=== PATIENT | male | born 1945 | race Caucasian/White ===

== ENCOUNTER 2021-12-17 16:50 | Emergency (ER) | payer OTHER, SELFPAY ==
[2021-12-17] VITALS (14 sets, daily range): BP systolic 145–197; BP diastolic 80–97; PULSE 64–76; RESP 7–26; TEMP 36; O2SAT 95–99
--- NOTE | 2021-12-17 16:45 | RT.EKG_ITS ---
APPROVED REPORT Exam: Resting ECG Reason for Exam: abd pain/chest pain Patient Location: E HR:65 bpm ECG Measurements Heart Rate 65 AXIS TN 209 P 152 QRSd 109 QRS -10 QT 391 T -7 QTc 408 Conclusion Sinus or ectopic atrial rhythm...P axis (-45,135) Low voltage, extremity leads...all extremity leads <0.5mV sinus rhythm, normal axis, non ischemic, poor lead placement II
--- NOTE | 2021-12-17 17:30 | DI.CT_ITS ---
Exam(s) CT ABDOMEN PELVIS WO EXAM: CT ABDOMEN PELVIS WO CLINICAL HISTORY: left lower abdominal pain, rad into groin. TECHNIQUE: Imaging Protocol: Axial computed tomography images with coronal and sagittal reformatted images were created and reviewed CONTRAST MATERIAL: Intravenous: none Oral: None COMPARISON: No exams were available for comparison FINDINGS: VISUALIZED LUNG BASES: No nodules nor pleural effusions evident. ABDOMEN: There is no ascites. LIVER: There is a 4 millimeter hypodensity in the right hepatic lobe which has benign appearance prob ably cyst or small hemangioma. GALLBLADDER/BILIARY: No obvious gallbladder pathology. CBD is not dilated. PANCREAS: No evidence of pancreatic mass nor dilatation of the pancreatic duct. SPLEEN: Spleen is not enlarged. No obvious intrasplenic lesions. ADRENALS: There are no significant adrenal masses. KIDNEYS:Horseshoe kidney. There is a 2.5 x 2.3 cm cyst in the posterior cortex of the right side of the horseshoe kidney. The right ureter appears unremarkable. There is some streaking around the lef t side of the horseshoe kidney and left ureter. There is a 3 millimeter calculus in the urinary blad brissa and I suspect this has recently passed down the left ureter. There are no remaining radiopaque c alculi in the or shoe kidney. No other significant focal findings in the bladder.. ABDOMINAL AORTA: Calcified and upper normal size. LYMPH NODES: There is no retroperitoneal nor paraaortic adenopathy. ABDOMINAL WALL: No significant anterior abdominal hernia although there is a fat containing left ingu inal hernia noted. GI: There is no evidence of bowel obstruction, free air, nor abscess. PELVIS: LYMPH NODES: There is no intrapelvic nor inguinal adenopathy. GI: No evidence of appendicitis.No evidence of sigmoid diverticulitis. URINARY BLADDER: 3 millimeter calculus dependent aspect bladder. REPRODUCTIVE: Prostate not enlarged. Seminal vesicles unremarkable OSSEOUS: No significant osseous lesions. No fractures. IMPRESSION: 1. 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 Also streaking around the left kidney aspect and left ureter. There is a 3 millimeter calculus in the ureter which I suspect has recently passed down the left side. Mild left retroperitoneal edema. 2. No remaining calculi in the horseshoe kidney. RADIATION DOSE DELIVERED: 696.31mGy.cm Total DLP DATA REPOSITORY: All CT scans at this facility are submitted to the National Radiology Data Registry (NRDR) Dose Index Registry (DIR) with the [employer] (ACR). RADIATION OPTIMIZATION: All CT scans at this facility use at least one of these dose optimization te chniques: automated exposure control; mA and/or kV adjustment per patient size (includes targeted exa ms where dose is matched to clinical indication); or iterative reconstruction.
[2021-12-17 18:00] LABS: Abs Immature Grans 0.01 10^3/uL (0.0-0.06); Absolute Basophil Count 0.04 10^3/uL (0.0-0.2); Absolute Eosinophil Count 0.01 10^3/uL (0.0-0.7); Absolute Lymphocyte Count 3.17 10^3/uL (1.2-3.4); Absolute Monocyte Count 0.16 10^3/uL (0.1-0.8); Basophils % 0.6; Eosinophils % 0.2; HCT 37.7 % (40.0-50.0); HGB 12.9 g/dL (13.5-17.5); Immature Grans % 0.2; Lymphocytes % 49.6; MCH 36.5 pg (27.0-33.0); MCHC 34.2 % (32.0-36.0); MCV 107 fL (80-95); MPV 9.5 fL (8.0-11.0); Monocytes % 2.5; Neutrophils % 46.9; Platelet Count 231 10^3/uL (130-400); RBC 3.53 10^6/uL (4.36-5.78); RDW 12.9 % (11.8-14.1); RDW-SD 50.9 fL; WBC 6.39 10^3/uL (4.4-10.8)
[2021-12-17] MEDS: Normal Saline 1,000 ML 1000 ML IV (18:05)
[2021-12-17] MEDS: HYDROmorphone 2 MG/ML VIAL 1 MG IVP (18:05)
[2021-12-17 18:17] LABS: ALT 28 U/L (16-63); AST 36 U/L (15-37); Alkaline Phosphatase 59 U/L (46-116); Anion Gap 10.4 mmol/L (3-11); BUN 23 mg/dL (7-18); Bilirubin, Total 0.5 mg/dL (0.2-1.0); CO2 25.6 mmol/L (21.0-32.0); CREATININE 1.3 mg/dL (0.70-1.30); Calcium 9.2 mg/dL (8.5-10.1); Chloride 102 mmol/L (98-107); Estimated GFR 53.82 (mL/min/1.73m2); Glucose 120 mg/dL (74-106); Lipase 87 U/L (73-393); Potassium 3.7 mmol/L (3.5-5.1); Sodium 138 mmol/L (136-145); Troponin I < 50 ng/L (<or=60)
--- NOTE | 2021-12-17 19:02 | DI.VRAD_ITS ---
PROCEDURE INFORMATION: Exam: CT Abdomen And Pelvis Without Contrast Exam date and time: 12/17/2021 6:34 PM Age: 76 years old Clinical indication: Abdominal pain; Localized; Left lower quadrant (llq); Additional info: Llq pain TECHNIQUE: Imaging protocol: Computed tomography of the abdomen and pelvis without contrast. Radiation optimization: All CT scans at this facility use at least one of these dose optimization techniques: automated exposure control; mA and/or kV adjustment per patient size (includes targeted exams where dose is matched to clinical indication); or iterative reconstruction. COMPARISON: No relevant prior studies available. FINDINGS: Lungs: Lung bases are clear. Liver: Unremarkable noncontrast liver. Gallbladder and bile ducts: Normal. No calcified stones. No ductal dilation. Pancreas: Normal. No ductal dilation. Spleen: Normal. No splenomegaly. Adrenal glands: Normal. No mass. Kidneys and ureters: Horseshoe kidney. Hydronephrosis noted on the left. Incidental right renal cyst 2.3 cm. Small 2 mm collecting system stone on the left. The left ureter is mildly dilated. There are no stones in the ureters. Stomach and bowel: Unremarkable stomach. Nondilated small bowel. Normal terminal ileum. Tortuous colon. Mild colonic stool. Scattered colonic diverticula. Appendix: No evidence of appendicitis. Intraperitoneal space: Unremarkable. No free air. No significant fluid collection. Retroperitoneal space: Moderate fat stranding is noted in left retroperitoneal spaces, extending into the pelvis. No specific fluid collections are observed. Vasculature: Moderate vascular calcifications. No aneurysm. Lymph nodes: Unremarkable. No enlarged lymph nodes. Urinary bladder: A 3 mm stone is positioned dependently in the urinary bladder. A small focus of air is present in the bladder. Bladder locke are mildly thickened. Reproductive: Unremarkable as visualized. Bones/joints: No compression fracture. Moderate multilevel degenerative disc disease and facet arthropathy. Fusion noted at L4-L5. Narrowing and osteophyte formation noted in both hips. Soft tissues: The psoas and iliacus muscles are normal and symmetric. IMPRESSION: 1. Suspect recently-passed stone from the left ureter. 2. Mild left hydroureteronephrosis. 3. Moderate left retroperitoneal edema or hemorrhage. No specific hematoma. 4. Horseshoe kidney noted. Dictated and Authenticated by: Jayy Sorto MD. Ordering:JORGE LUIS Harris MD
[2021-12-17 19:49] LABS: Bilirubin Negative (Negative); Blood Moderate (Negative); Clarity Clear (Clear); Glucose Negative (Negative); Ketones Trace mg/dL (Negative); Leukocyte Esterase Negative (Negative); Nitrite Negative (Negative); Specific Gravity 1.025 (1.005-1.025); Urobilinogen 0.2 EU/dL (Up TO 0.2); pH 5.5 (5-8)
[2021-12-17 19:57] LABS: Bacteria Negative HPF (Negative); C & S Indicated? No; Crystals Negative HPF (Negative); Epithelial Cells Few HPF (Negative); Mucus Trace (Negative); RBC 20-50 HPF (0-2); WBC 0-2 HPF (0-5)
[2021-12-17] MEDS: Ondansetron O.D.T. 4 MG TABEF, 3 TABS/BTL PO (20:15)
--- NOTE | 2021-12-17 22:18 | ED.GENADUL_ITS ---
Discharge Plan Disposition Patient Disposition: HOME Condition: Stable Discharge Details Clinical Impression: Ureterolithiasis Primary Care Provider: Unknown,Unknown ED Provider: Kimberly Irene Discharge Instructions Instructions: Kidney Stones (ED), Hydronephrosis (ED) Additional Instructions: I have asked that he just passed a kidney stone I am giving you a very small amount of oxycodone and Zofran should you need these medications for pain or nausea You can also take ibuprofen and Tylenol as needed for discomfort Please follow-up with your urologist at the [place] Should you have return of pain, fever, chills, or with any new or worsening complaints, please return to the emergency department for reassessment Medical Decision Making Virtual radiology interpretation of the CT scan of patient's abdomen and pelvis have possible retroperitoneal hemorrhage, I do not agree with this interpretation, clinically the patient has no evidence of retroperitoneal hemorrhage, there is been no trauma, patient is not anticoagulated And after receiving pain medication and urinating, patient is completely pain- free, he was assessed numerous times during this visit He has not needed any more than his additional 1 mg of Dilaudid that he received upon arrival He received 1 L of normal saline He is urinating without difficulty There is no evidence of secondary infection Reviewed CT findings with patient Is referred back to urology for follow-up given very low threshold to return should he have new or worsening complaints Medical Records Medical records reviewed: Yes I reviewed the patient's medical records. Lab Data Lab results reviewed: Yes I reviewed the patient's lab results. ECG Data Prior ECG tracings: available for review HPI General Date/Time Provider Initiated Documentation: 12/17/21 17:37 . HPI Narrative: This 76-year-old male who presents with report of abdominal pain for the past few hours. Denies chest pain but states. Epigastric pain.. The pain radiates into his left testicle. He feels pressure in his left abdomen. He states that he has had some difficulty urinating. He reports he had a similar episode with a kidney stone in the past. He denies any fever or chills. He felt fine prior to 2:00 today. He denies known exacerbating or alleviating factors. He denies any known history of coronary artery disease. Describes the pain as sharp. General Stated Complaint: Abd Prob CARI: 2 Review of Systems All systems reviewed & are unremarkable except as noted in HPI and below PFSH All Active Problems (Updated 12/17/21 @ 20:11 by ANTON Schultz) Ureterolithiasis (Acute) Social History Smoking/Tobacco Use Status: Former Tobacco Use Quit Date: 05/27/82 Smoking risk assessment performed?: Yes Alcohol Intake: current Alcohol Intake frequency: 3 or more drinks per day Alcohol type: beer Drug use: Daily Substance use type: marijuana Do you feel safe at home: Yes Do you feel safe in your relationship?: Yes Course Vital Signs Vital signs: Vital Signs Temperature 36.0 C L 12/17/21 16:53 Pulse 70 12/17/21 16:53 Blood Pressure 197/97 H 12/17/21 16:53 Pulse Oximetry 99 12/17/21 16:53 Temperature 36.0 C L 12/17/21 20:15 Temperature Source Skin 12/17/21 16:53 Pulse 71 12/17/21 20:15 Pulse 71 12/17/21 18:20 Respiratory Rate 16 12/17/21 20:15 Respiratory Effort 12/17/21 17:05 Blood Pressure 150/88 H 12/17/21 20:15 Blood Pressure Mean 96 12/17/21 18:16 Pulse Oximetry 96 12/17/21 20:15 Oxygen Delivery Method Room Air 12/17/21 16:53 Oxygen Flow Rate 0 12/17/21 16:53 Pain Level 3 12/17/21 20:15 Comment 12/17/21 16:53 Lab/Test Results Lab/Test Results: Laboratory Tests Range/Units 12/17/21 12/17/21 12/17/21 17:05 17:05 18:26 WBC (4.4-10.8) 10^3/uL 6.39 RBC (4.36-5.78) 10^6/uL 3.53 L Hgb (13.5-17.5) g/dL 12.9 L Hct (40.0-50.0) % 37.7 L MCV (80-95) fL 107 H MCH (27.0-33.0) pg 36.5 H MCHC (32.0-36.0) % 34.2 RDW (11.8-14.1) % 12.9 Plt Count (130-400) 10^3/uL 231 MPV (8.0-11.0) fL 9.5 Immature Gran % 0.2 Neutrophils % 46.9 Lymphocytes % 49.6 Monocytes % 2.5 Eosinophils % 0.2 Basophils % 0.6 Nucleated RBC % (0.0-0.3) % 0.0 Absolute Neutrophils (1.2-6.7) 10^3/uL 3.00 Absolute Lymphocytes (1.2-3.4) 10^3/uL 3.17 Absolute Monocytes (0.1-0.8) 10^3/uL 0.16 Absolute Eosinophils (0.0-0.7) 10^3/uL 0.01 Absolute Basophils (0.0-0.2) 10^3/uL 0.04 Sodium (136-145) mmol/L 138 Potassium (3.5-5.1) mmol/L 3.7 Chloride (98-107) mmol/L 102 Carbon Dioxide (21.0-32.0) mmol/L 25.6 Anion Gap (3-11) mmol/L 10.4 BUN (7-18) mg/dL 23 H Creatinine (0.70-1.30) mg/dL 1.3 Estimated GFR/1.73 m2 (mL/min/1.73m2) 53.82 Glucose (74-106) mg/dL 120 H Calcium (8.5-10.1) mg/dL 9.2 Total Bilirubin (0.2-1.0) mg/dL 0.5 AST (15-37) U/L 36 ALT (16-63) U/L 28 Alkaline Phosphatase (46-116) U/L 59 Troponin I (<or=60) ng/L < 50 Total Protein (6.4-8.2) g/dL 7.0 Albumin (3.4-5.0) g/dL 4.0 Lipase (73-393) U/L 87 Urine Color (Yellow) Yellow Urine Clarity (Clear) Clear Urine pH (5-8) 5.5 Ur Specific [place] (1.005-1.025) 1.025 Urine Protein (Negative) mg/dL Negative Urine Ketones (Negative) mg/dL Trace H Urine Blood (Negative) Moderate H Urine Nitrite (Negative) Negative Urine Bilirubin (Negative) Negative Urine Urobilinogen (Up TO 0.2) EU/dL 0.2 Ur Leukocyte Esterase (Negative) Negative Urine RBC (0-2) HPF 20-50 H Urine WBC (0-5) HPF 0-2 Ur Epithelial Cells (Negative) HPF Few Urine Crystals (Negative) HPF Negative Urine Bacteria (Negative) HPF Negative Urine Mucus (Negative) Trace Ur Culture Indicated? No Urine Glucose (Negative) mg/dL Negative PAWSS Have you Been Recently Intoxicated or Drunk Within the Last 30 days?: No Have you Ever Experienced Previous Episodes of Alcohol Withdrawal?: No Have you ever Experienced Withdrawal Seizures?: No Have you ever Experienced Delirium Tremens(DT)s?: No Have you ever undergone Alcohol Rehabilitation Treatment (i.e, inpt ot outpatient treatment programs)?: No Have you ever Experienced Blackouts?: No Have you ever Combined Alcohol with other Downers within the last 90 days?: No Have you ever Combined Alcohol with any other Substance of Abuse during the last 90 days?: No Positive Blood Alcohol level on Presentation? [PCS.BAL]: No Evidence of Increased Autonomic Activity (i.e. HR>120, tremor, sweating, agitation, nausea)?: No Result: 0
== END 2021-12-17 20:22 | disposition home or self-care (01) ==
PROVIDERS: Emergency Provider Physician Assistant
DX: N13.2 Hydronephrosis with renal and ureteral calculous obstruction (principal); Z87.891 Personal history of nicotine dependence
CPT/HCPCS: 80053; 83690; 93005; 96361; 96374; 99284; 74176; 81003; 81015; 84484; 85025; 93010; 99285

== ENCOUNTER 2022-03-16 12:28 | Emergency (ER) | payer OTHER, SELFPAY ==
[2022-03-16 12:43] VITALS: BP 123/68; PULSE 65; RESP 20; TEMP 36.8; O2SAT 95
== END 2022-03-16 13:59 ==
DX: Z53.21 Procedure and treatment not carried out due to patient leaving prior to being seen by health care provider (principal)

== ENCOUNTER 2023-12-04 09:49 | Outpatient (CLI) | payer OTHER, MEDICARE, SELFPAY ==
[2023-12-04 12:15] LABS: HCT 38.1 % (40.0-50.0); HGB 12.4 g/dL (13.5-17.5); MCH 35.1 pg (27.0-33.0); MCHC 32.5 % (32.0-36.0); MCV 108 fL (80-95); MPV 9.7 fL (8.0-11.0); Platelet Count 163 10^3/uL (130-400); RBC 3.53 10^6/uL (4.36-5.78); RDW 13.1 % (11.8-14.1); RDW-SD 51.7 fL; WBC 7.91 10^3/uL (4.4-10.8)
[2023-12-04 12:36] LABS: ALT 31 U/L (16-63); AST 25 U/L (15-37); Albumin 3.7 g/dL (3.4-5.0); Alkaline Phosphatase 58 U/L (46-116); Anion Gap 8.2 mmol/L (3-11); BUN 21 mg/dL (7-18); Bilirubin, Total 0.71 mg/dL (0.2-1.0); CO2 26.8 mmol/L (21.0-32.0); Calcium 9.1 mg/dL (8.5-10.1); Chloride 106 mmol/L (98-107); Estimated GFR 77.52 (mL/min/1.73m2); Glucose 95 mg/dL (74-106); Potassium 4.4 mmol/L (3.5-5.1); Sodium 141 mmol/L (136-145); Total Protein 6.5 g/dL (6.4-8.2)
[2023-12-04 12:45] LABS: Absolute Monocyte Count 0.16 10^3/uL (0.1-0.8); Absolute Neutrophil Count 2.85 10^3/uL (1.2-6.7); Atypical Lymphocytes % 25 %; Bands % 2 %
[2023-12-04 12:46] LABS: Diff Comment Manual Differential; Macrocytosis 1+
[2023-12-04 12:47] LABS: Stomatocytes 2+
[2023-12-04 19:14] LABS: PSA, Screening 1.8 ng/mL (<=6.5)
== END 2023-12-04 09:50 | disposition home or self-care (01) ==
LOC: LOS 09:49
PROVIDERS: Referring Provider Nurse Practitioner Family; Visit Provider Nurse Practitioner Family
DX: R35.0 Frequency of micturition (principal)
CPT/HCPCS: 36415; 80053; 84153; 85025

== ENCOUNTER 2025-02-01 16:04 | Emergency (ER) | payer OTHER, MEDICARE, SELFPAY ==
[2025-02-01] VITALS (53 sets, daily range): BP systolic 138–194; BP diastolic 74–97; PULSE 62–78; RESP 10–22; TEMP 36.7; O2SAT 89–98
--- NOTE | 2025-02-01 16:00 | RT.EKG_ITS ---
APPROVED REPORT Exam: Resting ECG Reason for Exam: Chest Pain Patient Location: E HR:68 bpm ECG Measurements Heart Rate 68 AXIS NC 190 P 45 QRSd 99 QRS 6 QT 382 T 30 QTc 407 Conclusion Sinus rhythm...normal P axis, V-rate 60- 99
[2025-02-01 16:32] LABS: BE (Venous) 6 mmol/L (-2-3); HCO3 (Venous) 30 mmol/L (23-28); O2 Sat (Venous) 78 %; TCO2 (Venous) 28 mmol/L (24-29); pCO2 (Venous) 46 mmHg (41-51); pO2 (Venous) 44 mmHg
[2025-02-01 16:34] LABS: Abs Immature Grans 0.03 10^3/uL (0.0-0.06); HCT 36.0 % (40.0-50.0); HGB 12.1 g/dL (13.5-17.5); MCH 35.0 pg (27.0-33.0); MCHC 33.6 % (32.0-36.0); MCV 104 fL (80-95); MPV 9.3 fL (8.0-11.0); Platelet Count 237 10^3/uL (130-400); RBC 3.46 10^6/uL (4.36-5.78); RDW 13.8 % (11.8-14.1); RDW-SD 52.9 fL; WBC 11.95 10^3/uL (4.4-10.8)
--- NOTE | 2025-02-01 16:42 | W.ED.GENAD ---
Discharge Plan Disposition Patient Disposition: Home Condition: Stable Discharge Details Clinical Impression: Chest pain Primary Care Provider: Unknown,Unknown ED Provider: Jayy Muñoz Home Meds and New Rx's Prescriptions: Continued acetaminophen 325 mg capsule 975 mg PO DAILY cyanocobalamin (vitamin B-12) 1,000 mcg capsule 1,000 mcg PO DAILY ezetimibe 10 mg tablet 10 mg PO DAILY loratadine [Loradamed] 10 mg tablet 10 mg PO DAILY multivitamin Tablet 1 tab PO DAILY naproxen 500 mg tablet 500 mg PO DAILY fluoxetine [Prozac] 40 mg Capsule 50 mg PO DAILY buspirone 15 mg Tablet 10 mg PO BID aspirin 81 mg Capsule 81 mg PO DAILY atorvastatin 10 mg Tablet 10 mg PO UD ascorbic acid (vitamin C) [Acerola C] 500 mg tablet,chewable 500 mg PO DAILY terazosin 5 mg capsule 5 mg PO DAILY No Action naltrexone 50 mg tablet 50 mg PO DAILY Discharge Instructions Additional Instructions: Your cardiac biomarkers and other lab work as well as your CAT scan did not show any concerning findings at this time. You can take a daily omeprazole which can help with your pain. If you are taking the oxycodone you should hold your naltrexone as it can blunt the effect of this. Follow-up with your medical providers if the symptoms continue. If you are more ill or have severe worsening pain or new symptoms such as persistent vomiting return to the emergency department for reevaluation. HPI General Mode of arrival: ambulatory. Date/Time Provider Initiated Documentation: 02/01/25 16:05. Limitations to Documentation: no limitations. Information obtained by: patient. History of Present Illness 79 year old M presents to the emergency department with the chief complaint of chest pain, described as moderate, Quality is described as aching, and is localized to the chest. Patient reports no radiation. Patient started experiencing this hour(s) (4) and it has been constant. No relieving factors improve symptom(s), Other factors that worsen symptoms (deep breaths) . Patient did receive the following treatments prior to arrival, none Related Data Home Medications ?Medication ?Instructions ?Recorded ?Confirmed aspirin 81 mg capsule 81 mg PO DAILY 03/16/22 02/01/25 atorvastatin 10 mg tablet 10 mg PO UD 03/16/22 02/01/25 buspirone 15 mg tablet 10 mg PO BID 03/16/22 02/01/25 fluoxetine 40 mg capsule (Prozac) 50 mg PO DAILY 03/16/22 02/01/25 acetaminophen 325 mg capsule 975 mg PO DAILY 12/04/23 02/01/25 cyanocobalamin (vitamin B-12) 1,000 mcg PO DAILY 12/04/23 02/01/25 1,000 mcg capsule ezetimibe 10 mg tablet 10 mg PO DAILY 12/04/23 02/01/25 loratadine 10 mg tablet (Loradamed) 10 mg PO DAILY 12/04/23 02/01/25 multivitamin 1 tab PO DAILY 12/04/23 02/01/25 naproxen 500 mg tablet 500 mg PO DAILY 12/04/23 02/01/25 ascorbic acid (vitamin C) 500 mg 500 mg PO DAILY 02/01/25 02/01/25 chewable tablet (Acerola C) naltrexone 50 mg tablet 50 mg PO DAILY 02/01/25 02/01/25 terazosin 5 mg capsule 5 mg PO DAILY 02/01/25 02/01/25 Allergies Allergy/AdvReac Type Severity Reaction Status Date / Time Sulfa (Sulfonamide Allergy Unknown Unknown Unverified 02/01/25 16:09 Antibiotics) General Stated Complaint: Chest Pain CARI: 3 Review of Systems All systems reviewed & are unremarkable except as noted in HPI and below Constitutional Constitutional: Denies chills, Denies fever(s) and Denies weakness Cardiovascular Cardiovascular: Reports chest pain and Reports dyspnea Respiratory Respiratory: Denies cough and Reports dyspnea Gastrointestinal Gastrointestinal: Denies abdominal pain, Denies nausea and Denies vomiting Neurologic Neurologic: Denies weakness Exam Const General: no acute distress Orientation: alert [facility] Head: normal to inspection Ears: external ears normal General nose exam: external nose normal Mouth: moist mucous membranes Eyes General: appearance normal, both eyes and all related structures Neck Neck: normal visual inspection Resp Effort & Inspection: normal respiratory effort and able to speak in complete sentences Auscultation: clear to auscultation bilaterally Cardio Jugular venous pressure: no JVD Rate: regular rate Heart Sounds: no murmurs Skin General skin exam: no rashes or lesions noted Neuro General: patient alert and patient oriented x3 Extrem General: normal to inspection Psych Mental Status: mental status grossly normal Course Vital Signs Vital signs: Vital Signs Temperature 36.7 C 02/01/25 16:06 Pulse 70 02/01/25 16:06 Respiratory Rate 18 02/01/25 16:06 Blood Pressure 151/85 H 02/01/25 16:06 Pulse Oximetry 96 02/01/25 16:06 Temperature 36.7 C 02/01/25 16:06 Pulse 70 02/01/25 16:06 Respiratory Rate 18 02/01/25 16:06 Blood Pressure 151/85 H 02/01/25 16:06 Pulse Oximetry 96 02/01/25 16:06 Lab/Test Results Lab/Test Results: Laboratory Tests Range/Units 02/01/25 16:21 VBG pH (7.31-7.41) 7.43 H VBG pCO2 (41-51) mmHg 46 VBG pO2 mmHg 44 VBG HCO3 (23-28) mmol/L 30 H VBG Total CO2 (24-29) mmol/L 28 VBG O2 Saturation % 78 VBG Base Excess (-2-3) mmol/L 6 H Medical Decision Making 79-year-old male who denies any prior cardiac history but 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 He also notes some mild shortness of breath. Denies any vomiting, diaphoresis, radiation of pain. He is well-appearing on exam speaking full sentences. He has clear lung sounds, no JVD, no leg swelling or calf tenderness. Given his age and risk factors we will proceed with CBC CMP and troponins and if his renal function is adequate also obtain a CT of the chest to evaluate for PE given the pleuritic nature of his pain. He has no tearing back pain to suggest dissection. Patient did not have any change with nitroglycerin so I gave him a GI cocktail which improved his pain and he also got 1 dose of morphine which resolved the pain. Given the lack of response to nitro I doubt this is cardiac related. Labs thus far unremarkable. Will obtain delta troponins. CTA of the chest negative as well. Third troponin negative and unchanged. Patient is stable and states that she does have burning sensation in his chest. Did have response to Mylanta so I suspect he could have esophagitis. I did offer to admit him to the hospital for observation but he declined this which I feel is reasonable and he has medical decision-making capacity. He is sri follow-up with the [place] where he gets medical care. And get him started daily omeprazole. He says that he has chronic pain issues and has had oxycodone in the past and requested a few doses of this which I will provide him. Return precautions given Differential Diagnosis Differential Diagnosis: acs, PE, pleurisy Medical Records Medical records reviewed: Yes I reviewed the patient's medical records. Lab Data Lab results reviewed: Yes I reviewed the patient's lab results. ECG Data Attestation: I personally reviewed and interpreted this ECG (s) as follows: Prior ECG tracings: available for review Interpretation: sinus rate of 68 no stemi PFSH All Active Problems (Updated 02/01/25 @ 20:56 by Jayy Muñoz MD) Chest pain (Acute) Social History Smoking/Tobacco Use Status: Former Tobacco Use Quit Date: 05/27/82 Smoking risk assessment performed?: Yes Alcohol Intake: current Alcohol Intake frequency: 3 or more drinks per day Alcohol type: beer Drug use: Daily Substance use type: marijuana Do you feel safe at home: Yes Do you feel safe in your relationship?: Yes PAWSS Have you Been Recently Intoxicated or Drunk Within the Last 30 days?: No Have you Ever Experienced Previous Episodes of Alcohol Withdrawal?: No Have you ever Experienced Withdrawal Seizures?: No Have you ever Experienced Delirium Tremens(DT)s?: No Have you ever undergone Alcohol Rehabilitation Treatment (i.e, inpt ot outpatient treatment programs)?: No Have you ever Experienced Blackouts?: No Have you ever Combined Alcohol with other Downers within the last 90 days?: No Have you ever Combined Alcohol with any other Substance of Abuse during the last 90 days?: No Positive Blood Alcohol level on Presentation? [PCS.BAL]: No Evidence of Increased Autonomic Activity (i.e. HR>120, tremor, sweating, agitation, nausea)?: No Result: 0 POCUS Exam (ED) Limited Cardiac Exam REASON FOR EXAM: Chest pain and Dyspnea VISUALIZED STRUCTURES: Four Chambers VIEW OBTAINED: Subxiphoid PERTINENT FINDINGS/IMPRESSION: No LV dysfunction Exam complete
[2025-02-01] MEDS: nitroGLYcerin 0.4 MG TAB SL ×2 (16:46→17:13)
[2025-02-01] MEDS: Aspirin 81 MG CHEW 243 MG PO (16:46)
[2025-02-01 16:49] LABS: INR 1.1 (0.9-1.1); PTT Activated 23.8 sec (20.6-30.2); Prothrombin Time 10.6 sec (9.1-11.1)
[2025-02-01 16:57] LABS: ALT 23 U/L (16-63); AST 25 U/L (15-37); Albumin 4.2 g/dL (3.4-5.0); Alkaline Phosphatase 61 U/L (46-116); Anion Gap 5.5 mmol/L (3-11); BUN 24 mg/dL (7-18); Bilirubin, Total 0.3 mg/dL (0.2-1.0); CO2 30.5 mmol/L (21.0-32.0); Calcium 9.6 mg/dL (8.5-10.1); Chloride 102 mmol/L (98-107); Estimated GFR 87.42 (mL/min/1.73m2); Glucose 100 mg/dL (74-106); Lipase 48 U/L (<78); Magnesium 2.0 mg/dL (1.8-2.4); Potassium 4.3 mmol/L (3.5-5.1); Sodium 138 mmol/L (136-145); Total Protein 6.7 g/dL (6.4-8.2); Troponin I 7 ng/L (<or=76)
[2025-02-01 17:07] LABS: RBC Morphology Normal
--- NOTE | 2025-02-01 17:15 | DI.CT_ITS ---
Exam(s) CT CHEST PE CTA EXAM: CT CHEST PE CTA CLINICAL HISTORY: pleuritic chest pain. TECHNIQUE: Imaging Protocol: Axial CT angiography was performed with multi- slice acquisition and multi-planar reconstructions as well as axial, coronal and sagittal MIP reconstructions. Computer aided detection (CAD) was utilized. CONTRAST MATERIAL: Intravenous: Omnipaque 350 Contrast volume:85 ml COMPARISON: CT CT ABDOMEN PELVIS WO from 12/17/2021 FINDINGS: Pulmonary Arteries: No evidence of filling defect to suggest pulmonary emboli. Mediastinum and Radha: No dominant adenopathy or fluid collection. Pulmonary parenchyma: No consolidation or dominant measurable mass. Pleura: No effusion or pneumothorax. Heart: The heart is mildly dilated. Moderate coronary artery calcifications are seen. Aorta: Thoracic aorta non-dilated. No dissection. Upper abdomen: No acute findings. Bones: Unremarkable for age. Tubes, Catheters, and Lines: None Soft tissues: Unremarkable. IMPRESSION: No evidence of pulmonary embolism or other acute abnormality in the chest. RADIATION DOSE DELIVERED: Total DLP DATA REPOSITORY: All CT scans at this facility are submitted to the National Radiology Data Registry (NRDR) Dose Index Registry (DIR) with the [employer] (A[employer]). RADIATION OPTIMIZATION: All CT scans at this facility use at least one of these dose optimization techniques: automated exposure control; mA and/or kV adjustment per patient size (includes targeted exams where dose is matched to clinical indication); or iterative reconstruction.
[2025-02-01] MEDS: Normal Saline - Diluent 50 ML VIAL IJ (17:30)
[2025-02-01] MEDS: Normal Saline Flush 10 ML SYR IVP ×2 (17:30→21:07)
[2025-02-01] MEDS: Omnipaque 350 MG/ML 100 ML BTL IJ (17:31)
[2025-02-01 17:45] LABS: Troponin I 8 ng/L (<or=76)
[2025-02-01] MEDS: MYLANTA 30 ML, LIDOCAINE 2% VISCOUS UD 15 ML PO (18:12)
[2025-02-01] MEDS: HYDROmorphone 2 MG/ML SYR 1 MG IVP (18:23)
[2025-02-01 20:26] LABS: Troponin I 9 ng/L (<or=76)
[2025-02-01] MEDS: oxyCODONE 5 MG TAB PO ×3 (21:05→21:06)
[2025-02-01] MEDS: Omeprazole 20 MG CAPCR PO (21:05)
== END 2025-02-01 21:17 | disposition home or self-care (01) ==
PROVIDERS: Emergency Provider Emergency Medicine
DX: R07.9 Chest pain, unspecified (principal); R06.02 Shortness of breath
CPT/HCPCS: 99285; 99284; 96374; 71275; 80053; 82805; 83690; 93005; 93308; 83735; 84484; 85025; 85610; 85730; 93010; J1171; J3490